=== PATIENT | male | born 1955 | race Caucasian/White ===

== ENCOUNTER 2017-10-21 17:03 | Emergency (ER) | payer MEDICARE, MEDICAID ==
[~2017-10-21] VITALS: Ht 170.2 cm; Wt 74.5 kg
[~2017-10-21 17:03] MED LIST: AMLO5TAB PO; ASPI-611 PO; CARV3.123 PO; FURO20TA4 PO; INSU100V36 SQ; LABE100T PO; LANTUS SUBCUT; LISI10TA4 PO; LORA0.5T PO; LORA2TAB PO; NITR1OIN TP; ONDA8TAB9 PO; PHO667C PO
[2017-10-21] MEDS ORDERED: HYDROcodone/acetaminophen 10/325mg tab PO ONE (17:30)
[2017-10-21 18:17] LABS: BASOPHILS % (AUTO) 0.3 % (0-1); EOSINOPHILS # (AUTO) 0.3 X10'3 (0-0.9); EOSINOPHILS % (AUTO) 4.9 % (0-6); HEMATOCRIT 38.3 % (42.0-52.0); HEMOGLOBIN 12.7 g/dl (14.0-17.9); LYMPHOCYTES # (AUTO) 1.3 X10'3 (1.1-4.8); LYMPHOCYTES % (AUTO) 23.5 % (21-51); MEAN CORPUSCULAR HEMOGLOBIN 32.5 PG (27.0-31.0); MEAN CORPUSCULAR HGB CONC 33.1 % (33.0-36.5); MEAN CORPUSCULAR VOLUME 98.1 FL (78-98); MEAN PLATELET VOLUME 8.7 FL (7.4-10.4); MONOCYTES # (AUTO) 1.1 X10'3 (0-0.9); MONOCYTES % (AUTO) 19.3 % (2-12); PLATELET COUNT 156 X10'3 (140-440); RED CELL DISTRIBUTION WIDTH 15.8 % (11.5-14.5); WHITE BLOOD COUNT 5.7 X10'3 (4.5-11.0)
[2017-10-21 18:27] LABS: INR 1.1 INR; PROTHROMBIN TIME 11.8 SECONDS (9.0-12.0)
[2017-10-21] MEDS ORDERED: HYDR-569 PO (18:29)
[2017-10-21] MEDS ORDERED: CEPH-571 PO (18:29)
[2017-10-21 18:42] LABS: ALANINE AMINOTRANSFERASE 47 U/L (12-78); ALBUMIN 3.6 G/DL (3.4-5.0); ALBUMIN/GLOBULIN RATIO 0.7 (1.1-1.5); ALKALINE PHOSPHATASE 80 IU/L (46-116); ANION GAP 11 (8-16); ASPARTATE AMINO TRANSFERASE 82 U/L (10-37); BILIRUBIN,TOTAL 0.8 MG/DL (0.1-1.0); BLOOD UREA NITROGEN 21 MG/DL (7-18); BUN/CREATININE RATIO 4.2 (5.4-32.0); CALCIUM 9.5 MG/DL (8.5-10.1); CHLORIDE 96 MMOL/L (99-107); CREATININE 5.02 MG/DL (0.60-1.10); GLUCOSE 121 MG/DL (70-104); POTASSIUM 3.6 MMOL/L (3.5-5.1); SODIUM 137 MMOL/L (135-145); TOTAL CARBON DIOXIDE 30.3 MMOL/L (24-32); TOTAL PROTEIN 8.5 G/DL (6.4-8.2); eGFR 12 ML/MIN
[2017-10-21 18:49] LABS: ANISOCYTOSIS 1+; PLATELET ESTIMATE NORMAL; TOTAL CELLS COUNTED 100
[2017-10-21 18:51] LABS: TARGET CELLS 1+; TEAR DROP CELLS FEW
[2017-10-21 18:58] VITALS: BP 173/81
== END 2017-10-21 19:09 | disposition home or self-care (01) ==
LOC: ER 17:03
DX: S81.801A Unspecified open wound, right lower leg, initial encounter (principal); M25.552 Pain in left hip; M25.512 Pain in left shoulder; I25.10 Atherosclerotic heart disease of native coronary artery without angina pectoris; E11.22 Type 2 diabetes mellitus with diabetic chronic kidney disease; I12.0 Hypertensive chronic kidney disease with stage 5 chronic kidney disease or end stage renal disease; N18.6 End stage renal disease; Z99.2 Dependence on renal dialysis; I25.2 Old myocardial infarction; G89.29 Other chronic pain; E78.00 Pure hypercholesterolemia, unspecified; Z98.62 Peripheral vascular angioplasty status; Z79.82 Long term (current) use of aspirin; Z79.4 Long term (current) use of insulin; Z79.899 Other long term (current) drug therapy; Z95.1 Presence of aortocoronary bypass graft; M15.9 Polyosteoarthritis, unspecified; W17.89XA Other fall from one level to another, initial encounter; Y93.89 Activity, other specified; Y92.89 Other specified places as the place of occurrence of the external cause; Y99.8 Other external cause status
CPT/HCPCS: 36415; 73030; 73502; 80053; 85025; 85610; 99285

== ENCOUNTER 2017-11-07 09:22 | Inpatient (IN) | payer MEDICARE, MEDICAID ==
[~2017-11-07] VITALS: Ht 170.2 cm; Wt 81.3 kg
[~2017-11-07 09:22] MED LIST changes: +CEPH-571 PO; +HYDR-569 PO
[2017-11-07] MEDS ORDERED: HYDROcodone/acetaminophen 10/325mg tab PO ONE (11:55)
[2017-11-07] MEDS ORDERED: labetalol 20mg/4ml (5mg/ml) syringe IV ONE (11:55)
[2017-11-07] MEDS ORDERED: HYDR-565 PO (11:55)
[2017-11-07] MEDS ORDERED: nitroGLYCERIN 0.4mg SUBLingual tab SL PRN (12:30)
[2017-11-07] MEDS ORDERED: nitroGLYCERIN 0.4mg SUBLingual tab SL ONE (12:30)
[2017-11-07] MEDS: nitroGLYCERIN 0.4mg SUBLingual tab SL PRN ×2 (12:35→12:50)
[2017-11-07] MEDS ORDERED: furosemide 20MG tablet PO ONE (12:55)
[2017-11-07] MEDS ORDERED: cloNIDine 0.1 mg tablet PO ONE (14:50)
[2017-11-07 14:53] LABS: BASOPHILS % (AUTO) 0.2 % (0-1); EOSINOPHILS # (AUTO) 0.1 X10'3 (0-0.9); EOSINOPHILS % (AUTO) 2.3 % (0-6); HEMATOCRIT 35.8 % (42.0-52.0); LYMPHOCYTES # (AUTO) 0.7 X10'3 (1.1-4.8); LYMPHOCYTES % (AUTO) 12.9 % (21-51); MEAN CORPUSCULAR HEMOGLOBIN 32.8 PG (27.0-31.0); MEAN CORPUSCULAR HGB CONC 33.6 % (33.0-36.5); MEAN CORPUSCULAR VOLUME 97.4 FL (78-98); MEAN PLATELET VOLUME 9.1 FL (7.4-10.4); MONOCYTES # (AUTO) 0.7 X10'3 (0-0.9); MONOCYTES % (AUTO) 11.8 % (2-12); NEUTROPHILS # (AUTO) 4.2 X10'3 (1.8-7.7); NEUTROPHILS % (AUTO) 72.8 % (42-75); PLATELET COUNT 134 X10'3 (140-440); RED BLOOD COUNT 3.68 X10'6 (4.70-6.10); WHITE BLOOD COUNT 5.8 X10'3 (4.5-11.0)
[2017-11-07 15:03] LABS: INR 1.2 INR; PARTIAL THROMBOPLASTIN TIME 32 SECONDS (22-32); PROTHROMBIN TIME 12.3 SECONDS (9.0-12.0)
[2017-11-07 15:10] LABS: ALANINE AMINOTRANSFERASE 14 U/L (12-78); ALBUMIN 3.5 G/DL (3.4-5.0); ALBUMIN/GLOBULIN RATIO 0.8 (1.1-1.5); ALKALINE PHOSPHATASE 84 IU/L (46-116); ANION GAP 10 (8-16); ASPARTATE AMINO TRANSFERASE 60 U/L (10-37); BLOOD UREA NITROGEN 29 MG/DL (7-18); BUN/CREATININE RATIO 5.1 (5.4-32.0); CALCIUM 8.6 MG/DL (8.5-10.1); CHLORIDE 95 MMOL/L (99-107); GLUCOSE 136 MG/DL (70-104); POTASSIUM 4.4 MMOL/L (3.5-5.1); SODIUM 132 MMOL/L (135-145); TOTAL CARBON DIOXIDE 26.7 MMOL/L (24-32); TOTAL PROTEIN 7.9 G/DL (6.4-8.2); eGFR 10 ML/MIN
[2017-11-07] MEDS ORDERED: HYDROcodone/acetaminophen 5mg/325mg tablet PO ONE (15:30)
[2017-11-07] MEDS ORDERED: heparin 1,000unit/ml 10ml vial 10 ML IV ONE (15:51)
[2017-11-07] MEDS ORDERED: albumin (human) 25% 100ml IV 100 ML IV PRN (15:55)
[2017-11-07] MEDS ORDERED: acetaminophen 325mg tablet PO PRN ×2 (15:55)
[2017-11-07] MEDS ORDERED: ipratropium/albuterol 3ml nebule NEB PRN (15:55)
[2017-11-07] MEDS ORDERED: HYDROcodone/acetaminophen 5mg/325mg tablet PO PRN ×2 (15:55→16:00)
[2017-11-07] MEDS ORDERED: ondansetron/PF 4mg/2ml inj IV PRN (15:55)
[2017-11-07] MEDS ORDERED: heparin 1,000 units/ml 10ml inj IV ONE (15:55)
[2017-11-07] MEDS ORDERED: epoetin 20,000 units/ml inj IV ONE (15:55)
[2017-11-07] MEDS ORDERED: bisacodyl 10mg suppository rectal RC PRN (15:55)
[2017-11-07] MEDS ORDERED: LORazepam 0.5 MG tablet PO PRN (16:00)
[2017-11-07] MEDS ORDERED: insulin Lispro (HumaLOG) vial - multi-dose SQ SCH (16:00)
[2017-11-07] MEDS ORDERED: glucagon, human recombinant 1mg kit SUBCUT PRN (16:00)
[2017-11-07] MEDS ORDERED: dextrose 50%-water 50ml dispensing syringe IV PRN ×2 (16:00)
[2017-11-07] MEDS ORDERED: dextrose ORAL solution 15 GM/59 ML bottle PO PRN ×2 (16:00)
[2017-11-07] MEDS ORDERED: non-formulary drug (Lorazepam 1 TAB) PO PRN (16:00)
[2017-11-07] MEDS ORDERED: non-formulary drug (Ondansetron (Zofran Odt) 8 MG) PO PRN (16:00)
[2017-11-07] MEDS ORDERED: MESSAGE TO PHARMACY PO ONE (16:00)
[2017-11-07] MEDS ORDERED: nitroGLYCERIN 1gm ointment UD TP PRN (16:00)
[2017-11-07] MEDS ORDERED: ondansetron 4mg rapidly disintigrating tab PO PRN ×2 (16:05)
[2017-11-07] MEDS ORDERED: ondansetron 4mg rapidly disintigrating tab PO SCH (16:05)
[2017-11-07] MEDS ORDERED: LORazepam 1 MG tablet PO PRN (16:05)
[2017-11-07] MEDS ORDERED: CARV-50 PO (17:03)
[2017-11-07] MEDS ORDERED: LABE300T PO (17:03)
[2017-11-07] MEDS ORDERED: HYDR-4070 PO (17:03)
[2017-11-07] MEDS ORDERED: LISI-600 PO (17:03)
[2017-11-07] MEDS: labetalol 5mg/ml 20ml inj. IV PRN ×3 (17:39→22:55)
[2017-11-07] MEDS: furosemide 40mg tablet PO SCH (18:18)
[2017-11-07] MEDS: carVEDilol 3.125mg tablet PO SCH (18:18)
[2017-11-07] MEDS: calcium acetate 667mg (PhosLO) capsule PO SCH (18:34)
[2017-11-07 19:00] VITALS: BP 207/106
[2017-11-07] MEDS ORDERED: heparin 1,000 units/ml 10ml inj HE ONE ×2 (19:05)
[2017-11-07 20:00] VITALS: BP 179/94
[2017-11-07] MEDS: heparin, porcine 5000 units/ml vial SQ SCH (20:14)
[2017-11-07] MEDS: docusate sod 100mg capsule PO SCH (20:14)
[2017-11-07 21:00] VITALS: BP 193/97
[2017-11-07] MEDS: insulin glargine (Lantus) pen - multi-dose SQ SCH ×2 (21:00)
[2017-11-07 22:00] VITALS: BP 194/94
[2017-11-07] MEDS: HYDROcodone/acetaminophen 10/325mg tab PO PRN (22:54)
[2017-11-07 23:00] VITALS: BP 175/94
[2017-11-08] VITALS (25 sets, daily range): BP systolic 119–214; BP diastolic 64–114
[2017-11-08] MEDS: HYDROcodone/acetaminophen 10/325mg tab PO PRN ×4 (05:06→21:31)
[2017-11-08 06:35] LABS: BASOPHILS % (AUTO) 0.1 % (0-1); EOSINOPHILS # (AUTO) 0.1 X10'3 (0-0.9); EOSINOPHILS % (AUTO) 2.6 % (0-6); HEMATOCRIT 36.1 % (42.0-52.0); HEMOGLOBIN 12.2 g/dl (14.0-17.9); LYMPHOCYTES # (AUTO) 0.7 X10'3 (1.1-4.8); MEAN CORPUSCULAR HEMOGLOBIN 33.1 PG (27.0-31.0); MEAN CORPUSCULAR HGB CONC 33.9 % (33.0-36.5); MEAN CORPUSCULAR VOLUME 97.8 FL (78-98); MONOCYTES # (AUTO) 0.6 X10'3 (0-0.9); MONOCYTES % (AUTO) 11.9 % (2-12); NEUTROPHILS # (AUTO) 3.2 X10'3 (1.8-7.7); NEUTROPHILS % (AUTO) 69.4 % (42-75); PLATELET COUNT 129 X10'3 (140-440); WHITE BLOOD COUNT 4.6 X10'3 (4.5-11.0)
[2017-11-08 07:01] LABS: ANION GAP 9 (8-16); BLOOD UREA NITROGEN 11 MG/DL (7-18); BUN/CREATININE RATIO 3.3 (5.4-32.0); CALCIUM 8.5 MG/DL (8.5-10.1); CHLORIDE 100 MMOL/L (99-107); GLUCOSE 119 MG/DL (70-104); MAGNESIUM 1.8 MG/DL (1.5-2.4); PHOSPHORUS 2.7 MG/DL (2.3-4.5); POTASSIUM 4.2 MMOL/L (3.5-5.1); SODIUM 137 MMOL/L (135-145); eGFR 19 ML/MIN
[2017-11-08] MEDS ORDERED: non-formulary drug (Aspirin (Aspir 81) 1 TABLET) PO SCH (08:00)
[2017-11-08] MEDS ORDERED: non-formulary drug (Amlodipine Besylate 1 TABLET) PO SCH (08:00)
[2017-11-08] MEDS: carVEDilol 3.125mg tablet PO SCH (08:07)
[2017-11-08] MEDS: amLODIPine 5mg tablet PO SCH (08:07)
[2017-11-08] MEDS: docusate sod 100mg capsule PO SCH ×2 (08:07→19:56)
[2017-11-08] MEDS: furosemide 40mg tablet PO SCH ×3 (08:07→21:25)
[2017-11-08] MEDS: calcium acetate 667mg (PhosLO) capsule PO SCH ×3 (08:07→17:56)
[2017-11-08] MEDS: aspirin 81mg tablet.DR PO SCH (08:07)
[2017-11-08] MEDS: pantoprazole 40mg Tablet.DR PO SCH (08:07)
[2017-11-08] MEDS: heparin, porcine 5000 units/ml vial SQ SCH ×2 (08:08→20:00)
[2017-11-08] MEDS: labetalol 5mg/ml 20ml inj. IV PRN (08:16)
[2017-11-08] MEDS ORDERED: hydrALAZINE 25 MG tablet PO ONE (08:40)
[2017-11-08] MEDS: labetalol 100mg tablet PO SCH ×3 (08:51→20:00)
[2017-11-08] MEDS: carVEDilol 12.5mg tablet PO SCH ×2 (10:00→19:56)
[2017-11-08] MEDS: lisinopril 20mg tablet PO SCH ×2 (10:42→19:57)
[2017-11-08] MEDS ORDERED: carVEDilol 3.125mg tablet PO ONE (11:25)
[2017-11-08] MEDS: hydrALAZINE 25 MG tablet PO SCH ×2 (12:47→21:26)
[2017-11-08] MEDS: insulin glargine (Lantus) pen - multi-dose SQ SCH ×2 (21:00)
[2017-11-09] VITALS (13 sets, daily range): BP systolic 113–160; BP diastolic 61–82
[2017-11-09 05:43] LABS: BASOPHILS % (AUTO) 0.4 % (0-1); EOSINOPHILS # (AUTO) 0.2 X10'3 (0-0.9); EOSINOPHILS % (AUTO) 3.8 % (0-6); HEMATOCRIT 33.2 % (42.0-52.0); HEMOGLOBIN 11.3 g/dl (14.0-17.9); LYMPHOCYTES # (AUTO) 0.9 X10'3 (1.1-4.8); LYMPHOCYTES % (AUTO) 20.8 % (21-51); MEAN CORPUSCULAR HEMOGLOBIN 33.1 PG (27.0-31.0); MEAN CORPUSCULAR HGB CONC 34.1 % (33.0-36.5); MEAN PLATELET VOLUME 9.6 FL (7.4-10.4); MONOCYTES # (AUTO) 0.7 X10'3 (0-0.9); NEUTROPHILS # (AUTO) 2.7 X10'3 (1.8-7.7); PLATELET COUNT 132 X10'3 (140-440); RED BLOOD COUNT 3.43 X10'6 (4.70-6.10); RED CELL DISTRIBUTION WIDTH 17.1 % (11.5-14.5); WHITE BLOOD COUNT 4.5 X10'3 (4.5-11.0)
[2017-11-09 06:22] LABS: ALBUMIN 2.6 G/DL (3.4-5.0); ANION GAP 8 (8-16); BLOOD UREA NITROGEN 17 MG/DL (7-18); BUN/CREATININE RATIO 3.8 (5.4-32.0); CALCIUM 8.2 MG/DL (8.5-10.1); CHLORIDE 99 MMOL/L (99-107); GLUCOSE 101 MG/DL (70-104); MAGNESIUM 1.7 MG/DL (1.5-2.4); PHOSPHORUS 3.2 MG/DL (2.3-4.5); POTASSIUM 4.3 MMOL/L (3.5-5.1); SODIUM 135 MMOL/L (135-145); TOTAL CARBON DIOXIDE 27.9 MMOL/L (24-32); eGFR 13 ML/MIN
[2017-11-09] MEDS: pantoprazole 40mg Tablet.DR PO SCH (06:58)
[2017-11-09] MEDS: HYDROcodone/acetaminophen 10/325mg tab PO PRN (06:58)
[2017-11-09] MEDS: docusate sod 100mg capsule PO SCH (07:26)
[2017-11-09] MEDS: carVEDilol 12.5mg tablet PO SCH (07:26)
[2017-11-09] MEDS: calcium acetate 667mg (PhosLO) capsule PO SCH ×2 (07:26→12:38)
[2017-11-09] MEDS: amLODIPine 5mg tablet PO SCH (07:27)
[2017-11-09] MEDS: lisinopril 20mg tablet PO SCH (07:27)
[2017-11-09] MEDS: aspirin 81mg tablet.DR PO SCH (07:27)
[2017-11-09] MEDS: hydrALAZINE 25 MG tablet PO SCH ×2 (07:27→12:37)
[2017-11-09] MEDS: furosemide 40mg tablet PO SCH ×2 (07:27→12:37)
[2017-11-09] MEDS: labetalol 100mg tablet PO SCH ×2 (07:30→07:34)
[2017-11-09] MEDS: heparin, porcine 5000 units/ml vial SQ SCH (07:31)
[2017-11-09] MEDS ORDERED: lactulose 20gm/30ml cup PO PRN (15:55)
== END 2017-11-09 13:50 | disposition home health service (06) | DRG 640 ==
LOC: ER 09:23 → ED HOLD 15:53 → EDBEDREQ 16:22 → CICU 2S 17:23
PROVIDERS: ADMIT Internal Medicine Critical Care Medicine; ATTEND Internal Medicine Critical Care Medicine
PROC: 5A1D70Z Performance of Urinary Filtration, Intermittent, Less than 6 Hours Per Day (ICD-10-PCS; principal; 2017-11-07)
DX: E87.70 Fluid overload, unspecified (principal); N18.6 End stage renal disease; E11.22 Type 2 diabetes mellitus with diabetic chronic kidney disease; I13.11 Hypertensive heart and chronic kidney disease without heart failure, with stage 5 chronic kidney disease, or end stage renal disease; I50.30 Unspecified diastolic (congestive) heart failure; I16.1 Hypertensive emergency; E78.00 Pure hypercholesterolemia, unspecified; G89.29 Other chronic pain; I25.10 Atherosclerotic heart disease of native coronary artery without angina pectoris; B19.20 Unspecified viral hepatitis C without hepatic coma; Z99.2 Dependence on renal dialysis; I25.2 Old myocardial infarction; Z79.4 Long term (current) use of insulin; Z79.82 Long term (current) use of aspirin; Z79.899 Other long term (current) drug therapy; Z80.9 Family history of malignant neoplasm, unspecified; Z83.3 Family history of diabetes mellitus; Z83.49 Family history of other endocrine, nutritional and metabolic diseases; Z82.49 Family history of ischemic heart disease and other diseases of the circulatory system
CPT/HCPCS: 36415; 80048; 80053; 82948; 83036; 83735; 84100; 84484; 85025; 85610; 85730; 87070; 93005; 94760; 99291; 99292; A6212; A6213; A6222; A6251; A6255; A6449; G0257; J0885; J1644; J1815; J3490; J7030

== ENCOUNTER 2017-11-28 09:51 | Emergency (ER) | payer MEDICARE, MEDICAID ==
[~2017-11-28] VITALS: Ht 167.6 cm; Wt 76.0 kg
[~2017-11-28 09:51] MED LIST changes: +CARV-50 PO; -CARV3.123 PO; -CEPH-571 PO; +HYDR-3965 PO; +HYDR-4070 PO; -HYDR-569 PO; -LABE100T PO; +LABE300T PO; +LISI-600 PO; -LISI10TA4 PO; +ONDA4TAB9 PO
[2017-11-28 12:04] LABS: BASOPHILS % (AUTO) 0.3 % (0-1); EOSINOPHILS # (AUTO) 0.1 X10'3 (0-0.9); EOSINOPHILS % (AUTO) 2.5 % (0-6); HEMATOCRIT 35.1 % (42.0-52.0); HEMOGLOBIN 12.4 g/dl (14.0-17.9); LYMPHOCYTES # (AUTO) 0.8 X10'3 (1.1-4.8); LYMPHOCYTES % (AUTO) 16.1 % (21-51); MEAN CORPUSCULAR HEMOGLOBIN 33.6 PG (27.0-31.0); MEAN CORPUSCULAR HGB CONC 35.2 % (33.0-36.5); MEAN CORPUSCULAR VOLUME 95.4 FL (78-98); MEAN PLATELET VOLUME 10.4 FL (7.4-10.4); MONOCYTES # (AUTO) 0.6 X10'3 (0-0.9); MONOCYTES % (AUTO) 13.6 % (2-12); NEUTROPHILS # (AUTO) 3.2 X10'3 (1.8-7.7); NEUTROPHILS % (AUTO) 67.5 % (42-75); PLATELET COUNT 129 X10'3 (140-440); RED BLOOD COUNT 3.68 X10'6 (4.70-6.10); RED CELL DISTRIBUTION WIDTH 16.2 % (11.5-14.5); WHITE BLOOD COUNT 4.8 X10'3 (4.5-11.0)
[2017-11-28 12:05] LABS: INR 1.2 INR; PROTHROMBIN TIME 12.4 SECONDS (9.0-12.0)
[2017-11-28 12:26] LABS: ALANINE AMINOTRANSFERASE 44 U/L (12-78); ALBUMIN 3.4 G/DL (3.4-5.0); ALBUMIN/GLOBULIN RATIO 0.8 (1.1-1.5); ALKALINE PHOSPHATASE 101 IU/L (46-116); ANION GAP 12 (8-16); ASPARTATE AMINO TRANSFERASE 76 U/L (10-37); BILIRUBIN,TOTAL 0.9 MG/DL (0.1-1.0); BLOOD UREA NITROGEN 35 MG/DL (7-18); BUN/CREATININE RATIO 6.6 (5.4-32.0); CALCIUM 9.6 MG/DL (8.5-10.1); CHLORIDE 95 MMOL/L (99-107); CREATININE 5.31 MG/DL (0.60-1.10); GLUCOSE 138 MG/DL (70-104); POTASSIUM 4.9 MMOL/L (3.5-5.1); SODIUM 133 MMOL/L (135-145); TOTAL CARBON DIOXIDE 26.4 MMOL/L (24-32); TOTAL PROTEIN 7.8 G/DL (6.4-8.2); eGFR 11 ML/MIN
[2017-11-28 12:35] LABS: LARGE PLATELETS FEW; PLATELET ESTIMATE NORMAL
[2017-11-28] MEDS ORDERED: HYDROcodone/acetaminophen 10/325mg tab PO ONE (13:15)
[2017-11-28] MEDS ORDERED: hydrALAZINE 20mg/ml inj. IV ONE (14:10)
[2017-11-28] MEDS ORDERED: HYDR-565 PO (14:30)
[2017-11-28] MEDS ORDERED: LIDOcaine/PRILOcaine 5gm cream TP ONE (14:35)
[2017-11-28] MEDS ORDERED: morphine 5 MG/ML injection IV ONE (14:45)
[2017-11-28] MEDS ORDERED: morphine 4 MG/ML inj SYRINge IV ONE (14:50)
[2017-11-28 15:07] VITALS: BP 178/100
== END 2017-11-28 15:08 | disposition home or self-care (01) ==
LOC: ER 09:52
DX: L03.116 Cellulitis of left lower limb (principal); L03.115 Cellulitis of right lower limb; I12.0 Hypertensive chronic kidney disease with stage 5 chronic kidney disease or end stage renal disease; E11.22 Type 2 diabetes mellitus with diabetic chronic kidney disease; N18.6 End stage renal disease; I25.10 Atherosclerotic heart disease of native coronary artery without angina pectoris; E78.00 Pure hypercholesterolemia, unspecified; I25.2 Old myocardial infarction; G89.29 Other chronic pain; Z99.2 Dependence on renal dialysis; Z95.1 Presence of aortocoronary bypass graft; Z98.62 Peripheral vascular angioplasty status; Z60.2 Problems related to living alone; Z79.82 Long term (current) use of aspirin; Z79.4 Long term (current) use of insulin; Z79.899 Other long term (current) drug therapy
CPT/HCPCS: 36415; 80053; 83880; 85025; 85610; 93970; 96374; 96375; 99291; J0360; J2270

== ENCOUNTER 2017-12-08 16:12 | Inpatient (IN) | payer MEDICARE, MEDICAID ==
[~2017-12-08] VITALS: Ht 170.2 cm; Wt 72.6 kg
[~2017-12-08 16:12] MED LIST changes: +HYDR-565 PO; +NAPR-56 PO
[2017-12-08] MEDS ORDERED: cloNIDine 0.1 mg tablet PO SCH (16:50)
[2017-12-08 16:59] VITALS: BP 218/109
[2017-12-08] MEDS ORDERED: ondansetron 4mg rapidly disintigrating tab PO PRN (17:15)
[2017-12-08] MEDS ORDERED: nitroGLYCERIN 1gm ointment UD TP PRN (17:15)
[2017-12-08] MEDS ORDERED: HYDROcodone/acetaminophen 5mg/325mg tablet PO PRN (17:15)
[2017-12-08] MEDS ORDERED: LORazepam 0.5 MG tablet PO PRN (17:15)
[2017-12-08] MEDS ORDERED: ondansetron/PF 4mg/2ml inj IV PRN (17:20)
[2017-12-08] MEDS ORDERED: diphenhydrAMINE 25mg capsule PO PRN (17:20)
[2017-12-08] MEDS ORDERED: acetaminophen 325mg tablet PO PRN (17:20)
[2017-12-08 18:18] LABS: INR 1.1 INR; PARTIAL THROMBOPLASTIN TIME 32 SECONDS (22-32); PROTHROMBIN TIME 11.2 SECONDS (9.0-12.0)
[2017-12-08 18:19] LABS: HEMATOCRIT 35.5 % (42.0-52.0); HEMOGLOBIN 12.1 g/dl (14.0-17.9); HEMOGLOBIN A1C 4.8 % (4.5-6.2); MEAN CORPUSCULAR HEMOGLOBIN 32.9 PG (27.0-31.0); MEAN CORPUSCULAR HGB CONC 34.1 % (33.0-36.5); MEAN CORPUSCULAR VOLUME 96.4 FL (78-98); MEAN PLATELET VOLUME 9.9 FL (7.4-10.4); PLATELET COUNT 113 X10'3 (140-440); RED BLOOD COUNT 3.68 X10'6 (4.70-6.10); RED CELL DISTRIBUTION WIDTH 15.9 % (11.5-14.5)
[2017-12-08 18:22] LABS: WHITE BLOOD COUNT 3.7 X10'3 (4.5-11.0)
[2017-12-08 18:30] LABS: ALANINE AMINOTRANSFERASE 48 U/L (12-78); ALBUMIN/GLOBULIN RATIO 0.6 (1.1-1.5); ALKALINE PHOSPHATASE 144 IU/L (46-116); ANION GAP 8 (8-16); ASPARTATE AMINO TRANSFERASE 82 U/L (10-37); BILIRUBIN,TOTAL 0.8 MG/DL (0.1-1.0); BLOOD UREA NITROGEN 32 MG/DL (7-18); CALCIUM 8.5 MG/DL (8.5-10.1); CHLORIDE 101 MMOL/L (99-107); CREATININE 3.54 MG/DL (0.60-1.10); GLUCOSE 189 MG/DL (70-104); PHOSPHORUS 4.8 MG/DL (2.3-4.5); POTASSIUM 4.3 MMOL/L (3.5-5.1); SODIUM 138 MMOL/L (135-145); TOTAL CARBON DIOXIDE 28.9 MMOL/L (24-32); TOTAL PROTEIN 7.7 G/DL (6.4-8.2); eGFR 18 ML/MIN
[2017-12-08 18:55] LABS: TOTAL CELLS COUNTED 100
[2017-12-08 18:57] LABS: ANISOCYTOSIS 1+; PLATELET ESTIMATE DECREASED; TARGET CELLS 1+
[2017-12-08 18:58] LABS: LARGE PLATELETS FEW
[2017-12-08 19:00] VITALS: BP 206/105
[2017-12-08] MEDS: carVEDilol 12.5mg tablet PO SCH (19:05)
[2017-12-08] MEDS: lisinopril 20mg tablet PO SCH (19:05)
[2017-12-08] MEDS: HYDROcodone/acetaminophen 10/325mg tab PO PRN (19:06)
[2017-12-08] MEDS: heparin, porcine 5000 units/ml vial SQ SCH (19:06)
[2017-12-08 21:00] VITALS: BP 191/110
[2017-12-08] MEDS: insulin glargine (Lantus) pen - multi-dose SQ SCH (21:00)
[2017-12-08] MEDS: furosemide 40mg tablet PO SCH (21:06)
[2017-12-08] MEDS: hydrALAZINE 25 MG tablet PO SCH (21:07)
[2017-12-08] MEDS: cloNIDine 0.1 mg tablet PO SCH (21:07)
[2017-12-08] MEDS: LORazepam 0.5 MG tablet PO PRN (21:07)
[2017-12-08 23:00] VITALS: BP 139/73
[2017-12-09] VITALS (7 sets, daily range): BP systolic 127–180; BP diastolic 68–101
[2017-12-09] MEDS: HYDROcodone/acetaminophen 10/325mg tab PO PRN ×4 (02:34→21:06)
[2017-12-09 05:54] LABS: BASOPHILS % (AUTO) 0 % (0-1); EOSINOPHILS # (AUTO) 0.1 X10'3 (0-0.9); EOSINOPHILS % (AUTO) 2.7 % (0-6); HEMATOCRIT 34.2 % (42.0-52.0); HEMOGLOBIN 11.6 g/dl (14.0-17.9); LYMPHOCYTES # (AUTO) 0.8 X10'3 (1.1-4.8); LYMPHOCYTES % (AUTO) 20.3 % (21-51); MEAN CORPUSCULAR HEMOGLOBIN 32.7 PG (27.0-31.0); MEAN CORPUSCULAR HGB CONC 33.9 % (33.0-36.5); MEAN CORPUSCULAR VOLUME 96.5 FL (78-98); MEAN PLATELET VOLUME 9.9 FL (7.4-10.4); MONOCYTES # (AUTO) 0.5 X10'3 (0-0.9); MONOCYTES % (AUTO) 13.3 % (2-12); NEUTROPHILS # (AUTO) 2.4 X10'3 (1.8-7.7); NEUTROPHILS % (AUTO) 63.7 % (42-75); PLATELET COUNT 101 X10'3 (140-440); RED BLOOD COUNT 3.54 X10'6 (4.70-6.10); RED CELL DISTRIBUTION WIDTH 16.3 % (11.5-14.5); WHITE BLOOD COUNT 3.7 X10'3 (4.5-11.0)
[2017-12-09 06:00] LABS: ALBUMIN 2.7 G/DL (3.4-5.0); ANION GAP 9 (8-16); BLOOD UREA NITROGEN 39 MG/DL (7-18); BUN/CREATININE RATIO 9.4 (5.4-32.0); CALCIUM 7.9 MG/DL (8.5-10.1); CHLORIDE 101 MMOL/L (99-107); CHOL/HDL RATIO 4.1 (0.00-4.99); CHOLESTEROL 172 MG/DL (0-200); CREATININE 4.15 MG/DL (0.60-1.10); GLUCOSE 143 MG/DL (70-104); HDL CHOLESTEROL 42 MG/DL (35-60); LDL CHOLESTEROL 106 MG/DL (50-100); MAGNESIUM 1.9 MG/DL (1.5-2.4); PHOSPHORUS 6.1 MG/DL (2.3-4.5); POTASSIUM 5.8 MMOL/L (3.5-5.1); SODIUM 137 MMOL/L (135-145); TOTAL CARBON DIOXIDE 26.7 MMOL/L (24-32); TRIGLYCERIDES 89 MG/DL (20-135); eGFR 15 ML/MIN
[2017-12-09] MEDS: aspirin 81mg tablet.DR PO SCH (07:59)
[2017-12-09] MEDS ORDERED: albumin (human) 25% 100ml IV 100 ML IV PRN (08:00)
[2017-12-09] MEDS ORDERED: amLODIPine 5mg tablet PO SCH (08:00)
[2017-12-09] MEDS: furosemide 40mg tablet PO SCH ×3 (08:00→21:07)
[2017-12-09] MEDS ORDERED: heparin 1,000 units/ml 10ml inj IV ONE (08:00)
[2017-12-09] MEDS ORDERED: heparin 1,000unit/ml 10ml vial 10 ML IV ONE (08:00)
[2017-12-09] MEDS: heparin, porcine 5000 units/ml vial SQ SCH ×2 (08:00→19:47)
[2017-12-09] MEDS: cloNIDine 0.1 mg tablet PO SCH ×3 (08:01→21:07)
[2017-12-09] MEDS: amLODIPine 5mg tablet PO SCH (08:02)
[2017-12-09] MEDS: carVEDilol 12.5mg tablet PO SCH ×2 (08:03→19:47)
[2017-12-09] MEDS: lisinopril 20mg tablet PO SCH ×2 (08:03→19:47)
[2017-12-09] MEDS: calcium acetate 667mg (PhosLO) capsule PO SCH ×3 (08:04→17:27)
[2017-12-09] MEDS: hydrALAZINE 25 MG tablet PO SCH ×3 (08:04→21:07)
[2017-12-09] MEDS ORDERED: heparin 1,000 units/ml 10ml inj HE ONE ×2 (11:10)
[2017-12-09] MEDS: LORazepam 0.5 MG tablet PO PRN ×2 (11:26→21:10)
[2017-12-09] MEDS: insulin glargine (Lantus) pen - multi-dose SQ SCH (21:00)
[2017-12-10 03:00] VITALS: BP 162/85
[2017-12-10] MEDS: HYDROcodone/acetaminophen 10/325mg tab PO PRN ×4 (03:09→20:49)
[2017-12-10 05:23] LABS: HEMATOCRIT 35.7 % (42.0-52.0); HEMOGLOBIN 12.2 g/dl (14.0-17.9); MEAN CORPUSCULAR HGB CONC 34.1 % (33.0-36.5); MEAN CORPUSCULAR VOLUME 96.7 FL (78-98); MEAN PLATELET VOLUME 10.4 FL (7.4-10.4); PLATELET COUNT 107 X10'3 (140-440); RED BLOOD COUNT 3.69 X10'6 (4.70-6.10); RED CELL DISTRIBUTION WIDTH 16.3 % (11.5-14.5); WHITE BLOOD COUNT 3.9 X10'3 (4.5-11.0)
[2017-12-10 05:40] LABS: ALBUMIN 2.7 G/DL (3.4-5.0); ANION GAP 8 (8-16); BLOOD UREA NITROGEN 28 MG/DL (7-18); BUN/CREATININE RATIO 9.3 (5.4-32.0); CALCIUM 7.6 MG/DL (8.5-10.1); CHLORIDE 98 MMOL/L (99-107); GLUCOSE 199 MG/DL (70-104); MAGNESIUM 1.9 MG/DL (1.5-2.4); PHOSPHORUS 4.8 MG/DL (2.3-4.5); POTASSIUM 4.9 MMOL/L (3.5-5.1); SODIUM 133 MMOL/L (135-145); TOTAL CARBON DIOXIDE 26.9 MMOL/L (24-32); eGFR 21 ML/MIN
[2017-12-10 06:00] VITALS: BP 162/88
[2017-12-10 06:02] LABS: LYMPHOCYTES % (MANUAL) 25 % (21-51); NEUTROPHILS % (MANUAL) 50 % (42-75); TOTAL CELLS COUNTED 100
[2017-12-10 06:03] LABS: EOSINOPHILS % (MANUAL) 8 % (0-6); MONOCYTES % (MANUAL) 17 % (2-12); PLATELET ESTIMATE DECREASED
[2017-12-10 06:04] LABS: ANISOCYTOSIS 1+
[2017-12-10] MEDS: calcium acetate 667mg (PhosLO) capsule PO SCH ×3 (07:16→17:48)
[2017-12-10] MEDS: cloNIDine 0.1 mg tablet PO SCH ×3 (07:17→20:48)
[2017-12-10] MEDS: heparin, porcine 5000 units/ml vial SQ SCH ×2 (07:17→20:49)
[2017-12-10] MEDS: hydrALAZINE 25 MG tablet PO SCH ×3 (07:17→20:48)
[2017-12-10] MEDS: lisinopril 20mg tablet PO SCH ×2 (07:17→20:48)
[2017-12-10] MEDS: furosemide 40mg tablet PO SCH ×3 (07:19→20:48)
[2017-12-10] MEDS: carVEDilol 12.5mg tablet PO SCH ×2 (07:19→20:48)
[2017-12-10] MEDS: amLODIPine 5mg tablet PO SCH (07:19)
[2017-12-10] MEDS: aspirin 81mg tablet.DR PO SCH (07:19)
[2017-12-10] MEDS ORDERED: heparin 1,000unit/ml 10ml vial 10 ML IV ONE (08:48)
[2017-12-10] MEDS ORDERED: albumin (human) 25% 100ml IV 100 ML IV PRN (08:50)
[2017-12-10] MEDS ORDERED: heparin 1,000 units/ml 10ml inj HE ONE ×2 (08:55)
[2017-12-10 11:00] VITALS: BP 124/64
[2017-12-10] MEDS: LORazepam 0.5 MG tablet PO PRN ×2 (14:16→20:49)
[2017-12-10] MEDS ORDERED: famotidine 20mg tablet PO ONE (14:55)
[2017-12-10] MEDS ORDERED: DOCUMENT DATE & TIME OF BETA-BLOCKER PO ONE (14:55)
[2017-12-10 15:00] VITALS: BP 159/89
[2017-12-10] MEDS ORDERED: ringers solution, lacted 1,000 ML IV ONE (18:54)
[2017-12-10 19:00] VITALS: BP 168/88
[2017-12-10] MEDS: insulin glargine (Lantus) pen - multi-dose SQ SCH (20:58)
[2017-12-10 23:00] VITALS: BP 153/79
[2017-12-11] VITALS (17 sets, daily range): BP systolic 121–172; BP diastolic 64–89
[2017-12-11] MEDS ORDERED: cefazolin/dext.iso 2gm/50ml 50 ML IV ONE (06:00)
[2017-12-11] MEDS ORDERED: ringers solution, lacted 1,000 ML IV SCH ×2 (06:00→13:22)
[2017-12-11] MEDS ORDERED: DOCUMENT DATE & TIME OF BETA-BLOCKER PO ONE (06:00)
[2017-12-11] MEDS ORDERED: famotidine 20mg tablet PO ONE (06:00)
[2017-12-11 06:12] LABS: HEMATOCRIT 35.8 % (42.0-52.0); HEMOGLOBIN 12.3 g/dl (14.0-17.9); MEAN CORPUSCULAR HEMOGLOBIN 33.2 PG (27.0-31.0); MEAN CORPUSCULAR HGB CONC 34.4 % (33.0-36.5); MEAN CORPUSCULAR VOLUME 96.5 FL (78-98); MEAN PLATELET VOLUME 10.1 FL (7.4-10.4); PLATELET COUNT 105 X10'3 (140-440); RED CELL DISTRIBUTION WIDTH 16.4 % (11.5-14.5); WHITE BLOOD COUNT 4.2 X10'3 (4.5-11.0)
[2017-12-11 06:15] LABS: INR 1.1 INR; PRE OP PARTIAL THROMB. TIME 35 SECONDS (22-35); PROTHROMBIN TIME 11.6 SECONDS (9.0-12.0)
[2017-12-11 06:27] LABS: ALANINE AMINOTRANSFERASE 54 U/L (12-78); ALBUMIN 2.8 G/DL (3.4-5.0); ALBUMIN/GLOBULIN RATIO 0.6 (1.1-1.5); ALKALINE PHOSPHATASE 119 IU/L (46-116); ANION GAP 7 (8-16); ASPARTATE AMINO TRANSFERASE 81 U/L (10-37); BILIRUBIN,TOTAL 0.6 MG/DL (0.1-1.0); BLOOD UREA NITROGEN 24 MG/DL (7-18); BUN/CREATININE RATIO 9.5 (5.4-32.0); CALCIUM 7.7 MG/DL (8.5-10.1); CHLORIDE 98 MMOL/L (99-107); CREATININE 2.53 MG/DL (0.60-1.10); GLUCOSE 154 MG/DL (70-104); MAGNESIUM 1.9 MG/DL (1.5-2.4); PHOSPHORUS 4.2 MG/DL (2.3-4.5); POTASSIUM 4.6 MMOL/L (3.5-5.1); SODIUM 133 MMOL/L (135-145); TOTAL CARBON DIOXIDE 27.8 MMOL/L (24-32); TOTAL PROTEIN 7.5 G/DL (6.4-8.2); eGFR 26 ML/MIN
[2017-12-11 07:18] LABS: NEUTROPHILS % (MANUAL) 57 % (42-75); TOTAL CELLS COUNTED 100
[2017-12-11 07:19] LABS: ANISOCYTOSIS 1+; BASOPHILS % (MANUAL) 1 % (0-1); EOSINOPHILS % (MANUAL) 6 % (0-6); LYMPHOCYTES % (MANUAL) 25 % (21-51); MONOCYTES % (MANUAL) 11 % (2-12); PLATELET ESTIMATE DECREASED
[2017-12-11] MEDS: calcium acetate 667mg (PhosLO) capsule PO SCH ×3 (08:00→17:25)
[2017-12-11] MEDS: heparin, porcine 5000 units/ml vial SQ SCH ×3 (08:00→20:00)
[2017-12-11] MEDS: LORazepam 0.5 MG tablet PO PRN ×2 (08:49→22:36)
[2017-12-11] MEDS: HYDROcodone/acetaminophen 10/325mg tab PO PRN ×2 (08:50→17:48)
[2017-12-11] MEDS: cloNIDine 0.1 mg tablet PO SCH ×3 (08:51→20:38)
[2017-12-11] MEDS: hydrALAZINE 25 MG tablet PO SCH ×3 (08:51→20:39)
[2017-12-11] MEDS: amLODIPine 5mg tablet PO SCH (08:52)
[2017-12-11] MEDS: aspirin 81mg tablet.DR PO SCH (08:53)
[2017-12-11] MEDS: furosemide 40mg tablet PO SCH ×3 (08:53→20:39)
[2017-12-11] MEDS: lisinopril 20mg tablet PO SCH ×2 (08:53→20:38)
[2017-12-11] MEDS: carVEDilol 12.5mg tablet PO SCH ×2 (08:53→20:38)
[2017-12-11] MEDS ORDERED: sevoflurane 250ml liquid IH ONE (12:56)
[2017-12-11] MEDS ORDERED: ondansetron/PF 4mg/2ml inj ONE (12:56)
[2017-12-11] MEDS ORDERED: glycopyrrolate 0.2mg/ml inj ONE (12:56)
[2017-12-11] MEDS ORDERED: etomidate 2mg/ml inj. ONE (12:56)
[2017-12-11] MEDS ORDERED: neostigmine methylsulfate 1 MG/ML 10ml vial ONE (12:56)
[2017-12-11] MEDS ORDERED: morphine 4 MG/ML inj SYRINge IV PRN ×3 (13:25→18:10)
[2017-12-11] MEDS ORDERED: HYDROmorphone inj. 0.5 MG/0.5 ML DISP.SYRIN IV PRN ×2 (13:25)
[2017-12-11] MEDS ORDERED: hydrALAZINE 20mg/ml inj. IV PRN (13:25)
[2017-12-11] MEDS ORDERED: ondansetron/PF 4mg/2ml inj IV PRN (13:25)
[2017-12-11] MEDS ORDERED: enalaprilat dihydrate 2.5mg/2ml vial IV PRN (13:25)
[2017-12-11] MEDS ORDERED: heparin sodium, porcine/PF 100unit/ml 5ML syringe ONE (14:05)
[2017-12-11] MEDS ORDERED: BUPIVAcaine/PF 2.5 mg/ml (0.25%) 30ml vial ONE (14:06)
[2017-12-11] MEDS ORDERED: ceFAZolin 1000mg inj ONE (14:06)
[2017-12-11] MEDS ORDERED: mupirocin 2% ointment 22GM ONE (14:06)
[2017-12-11] MEDS ORDERED: epiNEPHrine 1 mg/ml inj ONE (14:06)
[2017-12-11] MEDS: morphine 4 MG/ML inj SYRINge IV PRN ×2 (18:25→22:32)
[2017-12-11] MEDS: insulin glargine (Lantus) pen - multi-dose SQ SCH (20:44)
[2017-12-12] VITALS (7 sets, daily range): BP systolic 103–145; BP diastolic 55–81
[2017-12-12] MEDS: morphine 4 MG/ML inj SYRINge IV PRN ×4 (04:02→19:40)
[2017-12-12] MEDS: aspirin 81mg tablet.DR PO SCH (06:51)
[2017-12-12] MEDS: HYDROcodone/acetaminophen 10/325mg tab PO PRN ×2 (06:51→16:06)
[2017-12-12] MEDS: LORazepam 0.5 MG tablet PO PRN (06:52)
[2017-12-12] MEDS: furosemide 40mg tablet PO SCH ×3 (06:52→21:04)
[2017-12-12] MEDS: calcium acetate 667mg (PhosLO) capsule PO SCH ×3 (06:52→17:52)
[2017-12-12 06:58] LABS: HEMATOCRIT 37.9 % (42.0-52.0); HEMOGLOBIN 12.9 g/dl (14.0-17.9); MEAN CORPUSCULAR HEMOGLOBIN 33.2 PG (27.0-31.0); MEAN CORPUSCULAR VOLUME 97.8 FL (78-98); MEAN PLATELET VOLUME 10.3 FL (7.4-10.4); PLATELET COUNT 108 X10'3 (140-440); RED BLOOD COUNT 3.87 X10'6 (4.70-6.10); RED CELL DISTRIBUTION WIDTH 16.4 % (11.5-14.5)
[2017-12-12 07:26] LABS: ALBUMIN 2.8 G/DL (3.4-5.0); ANION GAP 8 (8-16); BLOOD UREA NITROGEN 39 MG/DL (7-18); BUN/CREATININE RATIO 8.8 (5.4-32.0); CALCIUM 8.1 MG/DL (8.5-10.1); CHLORIDE 95 MMOL/L (99-107); CREATININE 4.44 MG/DL (0.60-1.10); GLUCOSE 130 MG/DL (70-104); PHOSPHORUS 7.1 MG/DL (2.3-4.5); POTASSIUM 5.9 MMOL/L (3.5-5.1); SODIUM 130 MMOL/L (135-145); TOTAL CARBON DIOXIDE 26.7 MMOL/L (24-32); eGFR 14 ML/MIN
[2017-12-12] MEDS ORDERED: heparin 1,000unit/ml 10ml vial 10 ML IV ONE (08:00)
[2017-12-12] MEDS: hydrALAZINE 25 MG tablet PO SCH ×3 (08:00→21:05)
[2017-12-12] MEDS: cloNIDine 0.1 mg tablet PO SCH ×3 (08:00→21:04)
[2017-12-12] MEDS: lisinopril 20mg tablet PO SCH ×2 (08:00→19:38)
[2017-12-12] MEDS: carVEDilol 12.5mg tablet PO SCH ×2 (08:00→19:38)
[2017-12-12] MEDS: heparin, porcine 5000 units/ml vial SQ SCH ×2 (08:00→19:44)
[2017-12-12] MEDS: amLODIPine 5mg tablet PO SCH (08:00)
[2017-12-12] MEDS ORDERED: heparin 1,000 units/ml 10ml inj HE ONE ×2 (08:00)
[2017-12-12] MEDS ORDERED: normal saline 1000ml 250 ML IV PRN (08:00)
[2017-12-12 08:07] LABS: ANISOCYTOSIS 1+; PLATELET ESTIMATE DECREASED; TOTAL CELLS COUNTED 100
[2017-12-12 08:08] LABS: POIKILOCYTOSIS FEW; TARGET CELLS FEW
[2017-12-12] MEDS: insulin glargine (Lantus) pen - multi-dose SQ SCH (21:00)
[2017-12-13] VITALS: BP 107/64
[2017-12-13] MEDS: HYDROcodone/acetaminophen 10/325mg tab PO PRN ×2 (00:29→07:35)
[2017-12-13] MEDS: morphine 4 MG/ML inj SYRINge IV PRN ×3 (01:50→11:01)
[2017-12-13] MEDS: LORazepam 0.5 MG tablet PO PRN (05:31)
[2017-12-13 06:13] LABS: BASOPHILS % (AUTO) 0.4 % (0-1); EOSINOPHILS # (AUTO) 0.1 X10'3 (0-0.9); EOSINOPHILS % (AUTO) 1.6 % (0-6); HEMATOCRIT 36.1 % (42.0-52.0); HEMOGLOBIN 12.6 g/dl (14.0-17.9); LYMPHOCYTES # (AUTO) 1.1 X10'3 (1.1-4.8); LYMPHOCYTES % (AUTO) 26.8 % (21-51); MEAN CORPUSCULAR HEMOGLOBIN 33.4 PG (27.0-31.0); MEAN CORPUSCULAR HGB CONC 34.8 % (33.0-36.5); MEAN PLATELET VOLUME 9.8 FL (7.4-10.4); MONOCYTES # (AUTO) 0.6 X10'3 (0-0.9); MONOCYTES % (AUTO) 15.1 % (2-12); NEUTROPHILS # (AUTO) 2.3 X10'3 (1.8-7.7); NEUTROPHILS % (AUTO) 56.1 % (42-75); PLATELET COUNT 101 X10'3 (140-440); RED BLOOD COUNT 3.76 X10'6 (4.70-6.10); RED CELL DISTRIBUTION WIDTH 16.2 % (11.5-14.5); WHITE BLOOD COUNT 4.1 X10'3 (4.5-11.0)
[2017-12-13 06:14] LABS: ALBUMIN 2.4 G/DL (3.4-5.0); ANION GAP 7 (8-16); BLOOD UREA NITROGEN 38 MG/DL (7-18); BUN/CREATININE RATIO 10.5 (5.4-32.0); CALCIUM 7.8 MG/DL (8.5-10.1); CHLORIDE 99 MMOL/L (99-107); CREATININE 3.63 MG/DL (0.60-1.10); GLUCOSE 138 MG/DL (70-104); MAGNESIUM 1.9 MG/DL (1.5-2.4); PHOSPHORUS 5.1 MG/DL (2.3-4.5); POTASSIUM 4.6 MMOL/L (3.5-5.1); SODIUM 134 MMOL/L (135-145); TOTAL CARBON DIOXIDE 27.6 MMOL/L (24-32); eGFR 17 ML/MIN
[2017-12-13 07:21] VITALS: BP 126/68
[2017-12-13] MEDS: calcium acetate 667mg (PhosLO) capsule PO SCH (07:33)
[2017-12-13] MEDS: lisinopril 20mg tablet PO SCH (07:33)
[2017-12-13] MEDS: hydrALAZINE 25 MG tablet PO SCH (07:33)
[2017-12-13] MEDS: cloNIDine 0.1 mg tablet PO SCH (07:33)
[2017-12-13] MEDS: aspirin 81mg tablet.DR PO SCH (07:33)
[2017-12-13] MEDS: amLODIPine 5mg tablet PO SCH (07:33)
[2017-12-13] MEDS: carVEDilol 12.5mg tablet PO SCH (07:33)
[2017-12-13] MEDS: heparin, porcine 5000 units/ml vial SQ SCH (07:34)
[2017-12-13] MEDS: furosemide 40mg tablet PO SCH (07:34)
[2017-12-13 11:31] VITALS: BP 107/60
== END 2017-12-13 11:35 | DRG 981 ==
LOC: PCU 3S 16:12 → MED 3N 12-12 21:30
PROVIDERS: ADMIT Internal Medicine Critical Care Medicine; ATTEND Internal Medicine Critical Care Medicine
PROC: 5A1D70Z Performance of Urinary Filtration, Intermittent, Less than 6 Hours Per Day (ICD-10-PCS; 2017-12-09)
PROC: 5A1D70Z Performance of Urinary Filtration, Intermittent, Less than 6 Hours Per Day (ICD-10-PCS; 2017-12-10)
PROC: 0W9G3ZZ Drainage of Peritoneal Cavity, Percutaneous Approach (ICD-10-PCS; 2017-12-11)
PROC: 0WHG43Z Insertion of Infusion Device into Peritoneal Cavity, Percutaneous Endoscopic Approach (ICD-10-PCS; principal; 2017-12-11 12:56)
PROC: 5A1D70Z Performance of Urinary Filtration, Intermittent, Less than 6 Hours Per Day (ICD-10-PCS; 2017-12-12)
DX: I13.2 Hypertensive heart and chronic kidney disease with heart failure and with stage 5 chronic kidney disease, or end stage renal disease (principal); N18.6 End stage renal disease; E11.22 Type 2 diabetes mellitus with diabetic chronic kidney disease; I42.9 Cardiomyopathy, unspecified; E87.70 Fluid overload, unspecified; B17.10 Acute hepatitis C without hepatic coma; R18.8 Other ascites; I50.30 Unspecified diastolic (congestive) heart failure; R62.7 Adult failure to thrive; Z99.2 Dependence on renal dialysis; Z79.82 Long term (current) use of aspirin; Z79.4 Long term (current) use of insulin; Z79.899 Other long term (current) drug therapy; Z87.891 Personal history of nicotine dependence; Z82.49 Family history of ischemic heart disease and other diseases of the circulatory system; Z83.3 Family history of diabetes mellitus; Z80.9 Family history of malignant neoplasm, unspecified
CPT/HCPCS: 36415; 71045; 80048; 80053; 80061; 82948; 83036; 83735; 83880; 84100; 85025; 85610; 85730; 87070; 93005; 93306; 97110; 97116; 97162; A4649; A6196; A6212; A6213; A6257; A6449; A7000; C1750; G0257; J0171; J0690; J1642; J1644; J1815; J2270; J2405; J2710; J3490; J7030; J7120

== ENCOUNTER 2017-12-11 08:00 | Day surgery (SDC) | payer MEDICARE, MEDICAID ==
[~2017-12-11] VITALS: Ht 170.2 cm; Wt 90.7 kg
[~2017-12-11 08:00] MED LIST changes: -AMLO5TAB PO; +DOCUMENT DATE & TIME OF BETA-BLOCKER PO ONE; -LABE300T PO; -LANTUS SUBCUT; -NAPR-56 PO; -ONDA4TAB9 PO; +cefazolin/dext.iso 2gm/50ml 50 ML IV ONE; +famotidine 20mg tablet PO ONE; +ringers solution, lacted 1,000 ML IV SCH
[2017-12-11] MEDS ORDERED: ceFAZolin 1000mg inj ONE (11:28)
[2017-12-11] MEDS ORDERED: epiNEPHrine 1 mg/ml inj ONE (11:28)
[2017-12-11] MEDS ORDERED: heparin sodium, porcine/PF 100unit/ml 5ML syringe ONE ×2 (11:28→11:31)
[2017-12-11] MEDS ORDERED: mupirocin 2% ointment 22GM ONE (11:29)
[2017-12-11] MEDS ORDERED: BUPIVAcaine/PF 2.5 mg/ml (0.25%) 30ml vial ONE (11:29)
[2017-12-11] MEDS ORDERED: fentaNYL/PF 50MCG/1 ML 2ML syringe ONE (13:00)
[2017-12-11] MEDS ORDERED: midazolam 2 mg/2 ml injection ONE (13:00)
[2017-12-11] MEDS ORDERED: rocuronium 10mg/ml inj IV ONE (13:01)
[2017-12-11] MEDS ORDERED: etomidate 2mg/ml inj. ONE (13:01)
[2017-12-11] MEDS ORDERED: hydrALAZINE 20mg/ml inj. IV ONE (13:12)
[2017-12-11] MEDS ORDERED: ondansetron/PF 4mg/2ml inj ONE (13:12)
[2017-12-11] MEDS ORDERED: neostigmine methylsulfate 1 MG/ML 10ml vial ONE (13:36)
[2017-12-11] MEDS ORDERED: glycopyrrolate 0.2mg/ml inj ONE (13:36)
== END 2017-12-11 13:25 | disposition home or self-care (01) ==
LOC: PRE-OP 08:00
PROVIDERS: ATTEND Surgery
DX: I13.2 Hypertensive heart and chronic kidney disease with heart failure and with stage 5 chronic kidney disease, or end stage renal disease (principal); N18.6 End stage renal disease; E11.22 Type 2 diabetes mellitus with diabetic chronic kidney disease; I50.9 Heart failure, unspecified; B19.20 Unspecified viral hepatitis C without hepatic coma; F10.21 Alcohol dependence, in remission; Z53.8 Procedure and treatment not carried out for other reasons; Z99.2 Dependence on renal dialysis; Z79.82 Long term (current) use of aspirin; Z79.4 Long term (current) use of insulin; Z95.1 Presence of aortocoronary bypass graft
CPT/HCPCS: A6212; A6257; J0171; J0360; J0690; J1642; J2250; J2405; J2710; J3010; J3490; J7030; J7120

== ENCOUNTER 2017-12-17 03:53 | Inpatient (IN) | payer MEDICARE, MEDICAID ==
[2017-12-17] VITALS (7 sets, daily range): BP systolic 156–204; BP diastolic 82–99
[~2017-12-17] VITALS: Ht 170.2 cm; Wt 62.5 kg
[~2017-12-17 03:53] MED LIST changes: -DOCUMENT DATE & TIME OF BETA-BLOCKER PO ONE; -cefazolin/dext.iso 2gm/50ml 50 ML IV ONE; -famotidine 20mg tablet PO ONE; -ringers solution, lacted 1,000 ML IV SCH
[2017-12-17 04:40] LABS: BASOPHILS % (AUTO) 0.5 % (0-1); EOSINOPHILS # (AUTO) 0.2 X10'3 (0-0.9); HEMOGLOBIN 12.6 g/dl (14.0-17.9); LYMPHOCYTES # (AUTO) 0.7 X10'3 (1.1-4.8); LYMPHOCYTES % (AUTO) 17.9 % (21-51); MEAN CORPUSCULAR HGB CONC 34.1 % (33.0-36.5); MEAN CORPUSCULAR VOLUME 96.7 FL (78-98); MEAN PLATELET VOLUME 9.7 FL (7.4-10.4); MONOCYTES # (AUTO) 0.5 X10'3 (0-0.9); NEUTROPHILS # (AUTO) 2.7 X10'3 (1.8-7.7); NEUTROPHILS % (AUTO) 64.6 % (42-75); PLATELET COUNT 101 X10'3 (140-440); RED BLOOD COUNT 3.82 X10'6 (4.70-6.10); RED CELL DISTRIBUTION WIDTH 15.7 % (11.5-14.5); WHITE BLOOD COUNT 4.2 X10'3 (4.5-11.0)
[2017-12-17 04:58] LABS: ALANINE AMINOTRANSFERASE 11 U/L (12-78); ALBUMIN 2.6 G/DL (3.4-5.0); ALBUMIN/GLOBULIN RATIO 0.6 (1.1-1.5); ALKALINE PHOSPHATASE 112 IU/L (46-116); ANION GAP 12 (8-16); ASPARTATE AMINO TRANSFERASE 63 U/L (10-37); BILIRUBIN,TOTAL 0.8 MG/DL (0.1-1.0); BLOOD UREA NITROGEN 52 MG/DL (7-18); BUN/CREATININE RATIO 10.4 (5.4-32.0); CALCIUM 8.9 MG/DL (8.5-10.1); CHLORIDE 97 MMOL/L (99-107); GLUCOSE 152 MG/DL (70-104); LIPASE 149 U/L (73-393); MAGNESIUM 2.2 MG/DL (1.5-2.4); PHOSPHORUS 4.2 MG/DL (2.3-4.5); POTASSIUM 5.1 MMOL/L (3.5-5.1); SODIUM 136 MMOL/L (135-145); TOTAL CARBON DIOXIDE 27.3 MMOL/L (24-32); TOTAL PROTEIN 7.2 G/DL (6.4-8.2); eGFR 12 ML/MIN
[2017-12-17] MEDS ORDERED: morphine 2 MG/ML inj. syringe IV PRN ×2 (05:30)
[2017-12-17] MEDS ORDERED: ondansetron/PF 4mg/2ml inj IV PRN (05:30)
[2017-12-17] MEDS ORDERED: morphine 4 MG/ML inj SYRINge IV PRN ×2 (06:15)
[2017-12-17 08:43] LABS: BFAPPEAR CLOUDY
[2017-12-17 08:45] LABS: BF WBC COUNT 290 /CU MM (0-1000); BFCOLOR PINK; BFVOLUME 27 ML
[2017-12-17 08:47] LABS: BF MESOTHELIAL CELLS FEW; BF RBC COUNT 7050 /CU MM; EOSINOPHILS,BODY FLUID 25 %; LYMPHOCYTES,BODY FLUID 10 %; MONOCYTES,BODY FLUID 4 %; NEUTROPHILS,BODY FLUID 61 %
[2017-12-17] MEDS ORDERED: VITC500T PO (09:15)
[2017-12-17] MEDS ORDERED: CLON-529 PO (09:24)
[2017-12-17] MEDS ORDERED: DULR (09:25)
[2017-12-17] MEDS ORDERED: NA P133E4 RC (09:27)
[2017-12-17] MEDS ORDERED: INSU100V9 SQ (09:29)
[2017-12-17] MEDS: morphine 4 MG/ML inj SYRINge IV PRN ×6 (09:34→23:39)
[2017-12-17] MEDS ORDERED: HYDR-565 PO (09:35)
[2017-12-17] MEDS: heparin, porcine 5000 units/ml vial SQ SCH ×2 (09:53→23:38)
[2017-12-17] MEDS ORDERED: morphine 10mg/ml inj. ONE (13:33)
[2017-12-17] MEDS ORDERED: non-formulary drug (Ondansetron (Zofran Odt) 8 MG) PO PRN (15:40)
[2017-12-17] MEDS ORDERED: HYDROcodone/acetaminophen 10/325mg tab PO PRN ×2 (15:40→16:40)
[2017-12-17] MEDS ORDERED: LORazepam 0.5 MG tablet PO PRN (15:55)
[2017-12-17] MEDS ORDERED: labetalol 20mg/4ml (5mg/ml) syringe IV PRN (16:40)
[2017-12-17] MEDS ORDERED: glucagon, human recombinant 1mg kit SUBCUT PRN (16:40)
[2017-12-17] MEDS ORDERED: dextrose 50%-water 50ml dispensing syringe IV PRN ×2 (16:40)
[2017-12-17] MEDS ORDERED: insulin Lispro (HumaLOG) vial - multi-dose SQ SCH (16:40)
[2017-12-17] MEDS ORDERED: MESSAGE TO PHARMACY PO ONE (16:40)
[2017-12-17] MEDS ORDERED: dextrose ORAL solution 15 GM/59 ML bottle PO PRN ×2 (16:40)
[2017-12-17] MEDS: calcium acetate 667mg (PhosLO) capsule PO SCH ×2 (17:06→23:34)
[2017-12-17] MEDS: HYDROcodone/acetaminophen 10/325mg tab PO PRN ×2 (17:07→22:13)
[2017-12-17] MEDS ORDERED: heparin 1,000unit/ml 10ml vial 10 ML IV ONE (17:56)
[2017-12-17] MEDS ORDERED: albumin (human) 25% 100ml IV 100 ML IV PRN (18:00)
[2017-12-17] MEDS ORDERED: heparin 1,000 units/ml 10ml inj HE ONE ×2 (18:00)
[2017-12-17] MEDS: LORazepam 0.5 MG tablet PO PRN (19:14)
[2017-12-17] MEDS ORDERED: insulin glargine (Lantus) pen - multi-dose SQ SCH (21:00)
[2017-12-17] MEDS: insulin glargine (Lantus) pen - multi-dose SQ SCH (21:00)
[2017-12-17] MEDS: hydrALAZINE 25 MG tablet PO SCH (23:34)
[2017-12-17] MEDS: lisinopril 20mg tablet PO SCH (23:34)
[2017-12-17] MEDS: furosemide 20MG tablet PO SCH (23:34)
[2017-12-17] MEDS: carVEDilol 12.5mg tablet PO SCH (23:34)
[2017-12-17] MEDS: cloNIDine 0.1 mg tablet PO SCH (23:35)
[2017-12-18] VITALS (10 sets, daily range): BP systolic 126–205; BP diastolic 61–95
[2017-12-18] MEDS: morphine 4 MG/ML inj SYRINge IV PRN ×7 (03:08→21:40)
[2017-12-18] MEDS: LORazepam 0.5 MG tablet PO PRN ×2 (03:23→19:27)
[2017-12-18 05:24] LABS: BASOPHILS % (AUTO) 0.1 % (0-1); EOSINOPHILS # (AUTO) 0.1 X10'3 (0-0.9); EOSINOPHILS % (AUTO) 1.4 % (0-6); HEMATOCRIT 39.5 % (42.0-52.0); HEMOGLOBIN 13.6 g/dl (14.0-17.9); LYMPHOCYTES % (AUTO) 12.5 % (21-51); MEAN CORPUSCULAR HEMOGLOBIN 32.8 PG (27.0-31.0); MEAN CORPUSCULAR HGB CONC 34.4 % (33.0-36.5); MEAN CORPUSCULAR VOLUME 95.4 FL (78-98); MEAN PLATELET VOLUME 9.1 FL (7.4-10.4); MONOCYTES # (AUTO) 0.8 X10'3 (0-0.9); MONOCYTES % (AUTO) 10.8 % (2-12); NEUTROPHILS # (AUTO) 5.8 X10'3 (1.8-7.7); NEUTROPHILS % (AUTO) 75.2 % (42-75); PLATELET COUNT 143 X10'3 (140-440); RED BLOOD COUNT 4.14 X10'6 (4.70-6.10); RED CELL DISTRIBUTION WIDTH 15.5 % (11.5-14.5); WHITE BLOOD COUNT 7.7 X10'3 (4.5-11.0)
[2017-12-18 05:43] LABS: INR 1.1 INR; PARTIAL THROMBOPLASTIN TIME 36 SECONDS (22-32); PROTHROMBIN TIME 11.2 SECONDS (9.0-12.0)
[2017-12-18 05:50] LABS: ALANINE AMINOTRANSFERASE 23 U/L (12-78); ALBUMIN 2.8 G/DL (3.4-5.0); ALBUMIN/GLOBULIN RATIO 0.6 (1.1-1.5); ALKALINE PHOSPHATASE 110 IU/L (46-116); ANION GAP 10 (8-16); ASPARTATE AMINO TRANSFERASE 77 U/L (10-37); BILIRUBIN,TOTAL 0.9 MG/DL (0.1-1.0); BLOOD UREA NITROGEN 28 MG/DL (7-18); BUN/CREATININE RATIO 7.9 (5.4-32.0); CALCIUM 8.8 MG/DL (8.5-10.1); CHLORIDE 98 MMOL/L (99-107); CREATININE 3.53 MG/DL (0.60-1.10); GLUCOSE 123 MG/DL (70-104); MAGNESIUM 2.1 MG/DL (1.5-2.4); POTASSIUM 4.4 MMOL/L (3.5-5.1); SODIUM 135 MMOL/L (135-145); TOTAL CARBON DIOXIDE 27.5 MMOL/L (24-32); TOTAL PROTEIN 7.8 G/DL (6.4-8.2); eGFR 18 ML/MIN
[2017-12-18] MEDS: calcium acetate 667mg (PhosLO) capsule PO SCH ×2 (06:53→17:24)
[2017-12-18] MEDS: carVEDilol 12.5mg tablet PO SCH ×2 (06:54→19:15)
[2017-12-18] MEDS: lisinopril 20mg tablet PO SCH ×2 (06:54→19:14)
[2017-12-18] MEDS: cloNIDine 0.1 mg tablet PO SCH ×3 (06:54→21:37)
[2017-12-18] MEDS: furosemide 20MG tablet PO SCH ×3 (06:54→21:36)
[2017-12-18] MEDS: hydrALAZINE 25 MG tablet PO SCH ×3 (06:54→21:37)
[2017-12-18] MEDS: heparin, porcine 5000 units/ml vial SQ SCH ×2 (06:56→19:15)
[2017-12-18] MEDS: labetalol 5mg/ml 20ml inj. IV PRN ×2 (10:11→17:24)
[2017-12-18] MEDS: aspirin 81mg tablet.DR PO SCH (11:08)
[2017-12-18] MEDS: ascorbic acid 500mg tablet PO SCH (11:08)
[2017-12-18] MEDS ORDERED: labetalol 20mg/4ml (5mg/ml) syringe IV ONE (12:00)
[2017-12-18] MEDS: minoxidil 2.5mg tablet PO SCH ×2 (13:05→19:14)
[2017-12-18] MEDS: insulin glargine (Lantus) pen - multi-dose SQ SCH (21:00)
[2017-12-19] MEDS: calcium acetate 667mg (PhosLO) capsule PO SCH ×3 (01:23→16:00)
[2017-12-19] MEDS: morphine 4 MG/ML inj SYRINge IV PRN ×4 (01:23→19:09)
[2017-12-19 03:00] VITALS: BP 98/50
[2017-12-19 05:30] VITALS: BP 100/51
[2017-12-19 06:33] LABS: BASOPHILS % (AUTO) 0.1 % (0-1); EOSINOPHILS # (AUTO) 0.1 X10'3 (0-0.9); EOSINOPHILS % (AUTO) 1.8 % (0-6); HEMATOCRIT 34.7 % (42.0-52.0); HEMOGLOBIN 11.9 g/dl (14.0-17.9); LYMPHOCYTES # (AUTO) 1.5 X10'3 (1.1-4.8); MEAN CORPUSCULAR HEMOGLOBIN 33.3 PG (27.0-31.0); MEAN CORPUSCULAR HGB CONC 34.4 % (33.0-36.5); MEAN CORPUSCULAR VOLUME 96.7 FL (78-98); MEAN PLATELET VOLUME 9.6 FL (7.4-10.4); MONOCYTES # (AUTO) 0.9 X10'3 (0-0.9); MONOCYTES % (AUTO) 14.5 % (2-12); NEUTROPHILS # (AUTO) 3.8 X10'3 (1.8-7.7); NEUTROPHILS % (AUTO) 60.6 % (42-75); PLATELET COUNT 131 X10'3 (140-440); RED BLOOD COUNT 3.59 X10'6 (4.70-6.10); RED CELL DISTRIBUTION WIDTH 15.8 % (11.5-14.5); WHITE BLOOD COUNT 6.3 X10'3 (4.5-11.0)
[2017-12-19 06:55] LABS: INR 1.1 INR; PARTIAL THROMBOPLASTIN TIME 36 SECONDS (22-32); PROTHROMBIN TIME 11.4 SECONDS (9.0-12.0)
[2017-12-19 06:57] LABS: ALANINE AMINOTRANSFERASE 22 U/L (12-78); ALBUMIN 2.4 G/DL (3.4-5.0); ALBUMIN/GLOBULIN RATIO 0.6 (1.1-1.5); ALKALINE PHOSPHATASE 87 IU/L (46-116); ANION GAP 9 (8-16); ASPARTATE AMINO TRANSFERASE 67 U/L (10-37); BILIRUBIN,TOTAL 0.6 MG/DL (0.1-1.0); BLOOD UREA NITROGEN 41 MG/DL (7-18); BUN/CREATININE RATIO 8.1 (5.4-32.0); CALCIUM 8.9 MG/DL (8.5-10.1); CHLORIDE 98 MMOL/L (99-107); CREATININE 5.09 MG/DL (0.60-1.10); GLUCOSE 124 MG/DL (70-104); MAGNESIUM 2.2 MG/DL (1.5-2.4); POTASSIUM 4.9 MMOL/L (3.5-5.1); SODIUM 135 MMOL/L (135-145); TOTAL CARBON DIOXIDE 28.2 MMOL/L (24-32); TOTAL PROTEIN 6.7 G/DL (6.4-8.2); eGFR 12 ML/MIN
[2017-12-19] MEDS: lisinopril 20mg tablet PO SCH ×2 (08:00→20:41)
[2017-12-19] MEDS ORDERED: epoetin 20,000 units/ml inj IV ONE (08:00)
[2017-12-19] MEDS ORDERED: heparin 1,000unit/ml 10ml vial 10 ML IV ONE (08:00)
[2017-12-19] MEDS: furosemide 20MG tablet PO SCH ×3 (08:00→20:38)
[2017-12-19] MEDS ORDERED: heparin 1,000 units/ml 10ml inj HE ONE ×2 (08:00)
[2017-12-19] MEDS: cloNIDine 0.1 mg tablet PO SCH ×3 (08:00→20:35)
[2017-12-19] MEDS: hydrALAZINE 25 MG tablet PO SCH ×3 (08:00→21:00)
[2017-12-19] MEDS: carVEDilol 12.5mg tablet PO SCH ×2 (08:00→20:41)
[2017-12-19] MEDS: heparin, porcine 5000 units/ml vial SQ SCH ×2 (08:00→19:09)
[2017-12-19] MEDS: minoxidil 2.5mg tablet PO SCH ×2 (08:00→20:00)
[2017-12-19] MEDS: ascorbic acid 500mg tablet PO SCH (09:42)
[2017-12-19] MEDS: aspirin 81mg tablet.DR PO SCH (09:42)
[2017-12-19 11:00] VITALS: BP 109/54
[2017-12-19 15:00] VITALS: BP 98/47
[2017-12-19 19:00] VITALS: BP 100/60
[2017-12-19] MEDS ORDERED: calcium acetate 667mg (PhosLO) capsule PO ONE (19:05)
[2017-12-19] MEDS: LORazepam 0.5 MG tablet PO PRN (20:29)
[2017-12-19] MEDS: insulin glargine (Lantus) pen - multi-dose SQ SCH (21:00)
[2017-12-19 23:00] VITALS: BP 112/64
[2017-12-20] MEDS: morphine 4 MG/ML inj SYRINge IV PRN ×9 (02:02→23:10)
[2017-12-20] MEDS: LORazepam 0.5 MG tablet PO PRN ×2 (02:11→16:38)
[2017-12-20 03:00] VITALS: BP 122/57
[2017-12-20 05:39] LABS: BASOPHILS % (AUTO) 0 % (0-1); EOSINOPHILS # (AUTO) 0.1 X10'3 (0-0.9); EOSINOPHILS % (AUTO) 1.9 % (0-6); HEMATOCRIT 32.3 % (42.0-52.0); HEMOGLOBIN 10.9 g/dl (14.0-17.9); LYMPHOCYTES # (AUTO) 1.2 X10'3 (1.1-4.8); LYMPHOCYTES % (AUTO) 19.6 % (21-51); MEAN CORPUSCULAR HEMOGLOBIN 32.7 PG (27.0-31.0); MEAN CORPUSCULAR HGB CONC 33.7 % (33.0-36.5); MEAN CORPUSCULAR VOLUME 97.1 FL (78-98); MEAN PLATELET VOLUME 8.7 FL (7.4-10.4); MONOCYTES % (AUTO) 15.7 % (2-12); NEUTROPHILS % (AUTO) 62.8 % (42-75); PLATELET COUNT 136 X10'3 (140-440); RED BLOOD COUNT 3.33 X10'6 (4.70-6.10); RED CELL DISTRIBUTION WIDTH 15.6 % (11.5-14.5); WHITE BLOOD COUNT 6.3 X10'3 (4.5-11.0)
[2017-12-20 06:00] VITALS: BP 126/53
[2017-12-20 06:00] LABS: INR 1.1 INR; PARTIAL THROMBOPLASTIN TIME 35 SECONDS (22-32); PROTHROMBIN TIME 11.3 SECONDS (9.0-12.0)
[2017-12-20 06:25] LABS: ALANINE AMINOTRANSFERASE 23 U/L (12-78); ALBUMIN 2.4 G/DL (3.4-5.0); ALBUMIN/GLOBULIN RATIO 0.5 (1.1-1.5); ALKALINE PHOSPHATASE 81 IU/L (46-116); ANION GAP 8 (8-16); ASPARTATE AMINO TRANSFERASE 70 U/L (10-37); BILIRUBIN,TOTAL 0.6 MG/DL (0.1-1.0); BLOOD UREA NITROGEN 26 MG/DL (7-18); BUN/CREATININE RATIO 6.9 (5.4-32.0); CALCIUM 8.3 MG/DL (8.5-10.1); CHLORIDE 98 MMOL/L (99-107); CREATININE 3.76 MG/DL (0.60-1.10); GLUCOSE 150 MG/DL (70-104); SODIUM 134 MMOL/L (135-145); TOTAL CARBON DIOXIDE 27.9 MMOL/L (24-32); TOTAL PROTEIN 6.8 G/DL (6.4-8.2); eGFR 17 ML/MIN
[2017-12-20 07:47] LABS: ANISOCYTOSIS 1+; PLATELET ESTIMATE DECREASED; TARGET CELLS FEW
[2017-12-20 07:48] LABS: POLYCHROMASIA 1+; SCHISTOCYTES FEW
[2017-12-20] MEDS: minoxidil 2.5mg tablet PO SCH ×2 (08:00→20:15)
[2017-12-20] MEDS: hydrALAZINE 25 MG tablet PO SCH ×3 (08:00→20:15)
[2017-12-20] MEDS: cloNIDine 0.1 mg tablet PO SCH ×3 (08:00→20:15)
[2017-12-20] MEDS: heparin, porcine 5000 units/ml vial SQ SCH ×2 (08:35→20:15)
[2017-12-20] MEDS: ascorbic acid 500mg tablet PO SCH (08:35)
[2017-12-20] MEDS: calcium acetate 667mg (PhosLO) capsule PO SCH ×3 (08:36→17:41)
[2017-12-20] MEDS: aspirin 81mg tablet.DR PO SCH (08:36)
[2017-12-20] MEDS: carVEDilol 12.5mg tablet PO SCH ×2 (08:43→20:15)
[2017-12-20] MEDS: furosemide 20MG tablet PO SCH ×3 (08:43→20:15)
[2017-12-20] MEDS: lisinopril 20mg tablet PO SCH ×2 (08:46→20:14)
[2017-12-20 13:15] VITALS: BP 155/76
[2017-12-20 15:00] VITALS: BP 148/73
[2017-12-20 18:00] VITALS: BP 160/81
[2017-12-20] MEDS: insulin glargine (Lantus) pen - multi-dose SQ SCH (21:00)
[2017-12-20 22:00] VITALS: BP 173/89
[2017-12-21] VITALS (7 sets, daily range): BP systolic 115–152; BP diastolic 56–76
[2017-12-21] MEDS: morphine 4 MG/ML inj SYRINge IV PRN ×8 (01:12→23:06)
[2017-12-21 06:19] LABS: BASOPHILS % (AUTO) 0.3 % (0-1); EOSINOPHILS # (AUTO) 0.2 X10'3 (0-0.9); EOSINOPHILS % (AUTO) 3.1 % (0-6); HEMATOCRIT 33.1 % (42.0-52.0); HEMOGLOBIN 11.3 g/dl (14.0-17.9); LYMPHOCYTES # (AUTO) 1.1 X10'3 (1.1-4.8); LYMPHOCYTES % (AUTO) 20.3 % (21-51); MEAN CORPUSCULAR HEMOGLOBIN 32.7 PG (27.0-31.0); MEAN CORPUSCULAR HGB CONC 34.1 % (33.0-36.5); MEAN PLATELET VOLUME 9.1 FL (7.4-10.4); MONOCYTES # (AUTO) 0.7 X10'3 (0-0.9); MONOCYTES % (AUTO) 12.7 % (2-12); NEUTROPHILS # (AUTO) 3.5 X10'3 (1.8-7.7); NEUTROPHILS % (AUTO) 63.6 % (42-75); PLATELET COUNT 154 X10'3 (140-440); RED BLOOD COUNT 3.44 X10'6 (4.70-6.10); WHITE BLOOD COUNT 5.4 X10'3 (4.5-11.0)
[2017-12-21 06:29] LABS: INR 1.1 INR; PROTHROMBIN TIME 11.1 SECONDS (9.0-12.0)
[2017-12-21 06:38] LABS: ALANINE AMINOTRANSFERASE 23 U/L (12-78); ALBUMIN 2.4 G/DL (3.4-5.0); ALBUMIN/GLOBULIN RATIO 0.5 (1.1-1.5); ALKALINE PHOSPHATASE 84 IU/L (46-116); ANION GAP 11 (8-16); ASPARTATE AMINO TRANSFERASE 65 U/L (10-37); BILIRUBIN,TOTAL 0.6 MG/DL (0.1-1.0); BLOOD UREA NITROGEN 38 MG/DL (7-18); BUN/CREATININE RATIO 7.8 (5.4-32.0); CALCIUM 8.9 MG/DL (8.5-10.1); CHLORIDE 96 MMOL/L (99-107); CREATININE 4.88 MG/DL (0.60-1.10); GLUCOSE 132 MG/DL (70-104); MAGNESIUM 2.1 MG/DL (1.5-2.4); POTASSIUM 4.6 MMOL/L (3.5-5.1); SODIUM 134 MMOL/L (135-145); TOTAL CARBON DIOXIDE 27.2 MMOL/L (24-32); TOTAL PROTEIN 6.8 G/DL (6.4-8.2); eGFR 12 ML/MIN
[2017-12-21] MEDS: heparin, porcine 5000 units/ml vial SQ SCH ×2 (07:59→20:00)
[2017-12-21] MEDS: aspirin 81mg tablet.DR PO SCH (07:59)
[2017-12-21] MEDS: carVEDilol 12.5mg tablet PO SCH ×2 (07:59→21:11)
[2017-12-21] MEDS: ascorbic acid 500mg tablet PO SCH (07:59)
[2017-12-21] MEDS: calcium acetate 667mg (PhosLO) capsule PO SCH ×3 (07:59→17:24)
[2017-12-21] MEDS: hydrALAZINE 25 MG tablet PO SCH ×2 (08:00→13:00)
[2017-12-21] MEDS: lisinopril 20mg tablet PO SCH ×2 (08:00→21:11)
[2017-12-21] MEDS: furosemide 20MG tablet PO SCH ×3 (08:00→21:12)
[2017-12-21] MEDS ORDERED: cloNIDine 0.1 mg tablet PO PRN (11:00)
[2017-12-21] MEDS: insulin glargine (Lantus) pen - multi-dose SQ SCH (21:00)
[2017-12-22] MEDS: hydrALAZINE 25 MG tablet PO SCH ×4 (00:03→21:21)
[2017-12-22] MEDS: LORazepam 0.5 MG tablet PO PRN ×2 (01:16→21:20)
[2017-12-22 02:00] VITALS: BP 125/60
[2017-12-22] MEDS: morphine 4 MG/ML inj SYRINge IV PRN ×5 (05:25→18:36)
[2017-12-22 06:00] VITALS: BP 151/73
[2017-12-22 06:06] LABS: BASOPHILS % (AUTO) 0.5 % (0-1); EOSINOPHILS # (AUTO) 0.2 X10'3 (0-0.9); EOSINOPHILS % (AUTO) 4.3 % (0-6); HEMATOCRIT 32.8 % (42.0-52.0); HEMOGLOBIN 11.1 g/dl (14.0-17.9); LYMPHOCYTES # (AUTO) 1.1 X10'3 (1.1-4.8); LYMPHOCYTES % (AUTO) 19.2 % (21-51); MEAN CORPUSCULAR HEMOGLOBIN 32.8 PG (27.0-31.0); MEAN CORPUSCULAR HGB CONC 33.9 % (33.0-36.5); MEAN CORPUSCULAR VOLUME 96.8 FL (78-98); MEAN PLATELET VOLUME 9.1 FL (7.4-10.4); MONOCYTES # (AUTO) 0.7 X10'3 (0-0.9); MONOCYTES % (AUTO) 11.6 % (2-12); NEUTROPHILS # (AUTO) 3.7 X10'3 (1.8-7.7); NEUTROPHILS % (AUTO) 64.4 % (42-75); PLATELET COUNT 169 X10'3 (140-440); RED BLOOD COUNT 3.38 X10'6 (4.70-6.10); RED CELL DISTRIBUTION WIDTH 14.9 % (11.5-14.5); WHITE BLOOD COUNT 5.7 X10'3 (4.5-11.0)
[2017-12-22 06:15] LABS: INR 1.1 INR; PROTHROMBIN TIME 11.2 SECONDS (9.0-12.0)
[2017-12-22 06:33] LABS: ALANINE AMINOTRANSFERASE 25 U/L (12-78); ALBUMIN 2.4 G/DL (3.4-5.0); ALBUMIN/GLOBULIN RATIO 0.5 (1.1-1.5); ALKALINE PHOSPHATASE 88 IU/L (46-116); ANION GAP 10 (8-16); ASPARTATE AMINO TRANSFERASE 64 U/L (10-37); BILIRUBIN,TOTAL 0.6 MG/DL (0.1-1.0); BLOOD UREA NITROGEN 49 MG/DL (7-18); BUN/CREATININE RATIO 7.9 (5.4-32.0); CALCIUM 9.3 MG/DL (8.5-10.1); CHLORIDE 95 MMOL/L (99-107); CREATININE 6.18 MG/DL (0.60-1.10); GLUCOSE 118 MG/DL (70-104); MAGNESIUM 2.2 MG/DL (1.5-2.4); POTASSIUM 5.1 MMOL/L (3.5-5.1); SODIUM 131 MMOL/L (135-145); TOTAL CARBON DIOXIDE 26.4 MMOL/L (24-32); eGFR 9 ML/MIN
[2017-12-22] MEDS: calcium acetate 667mg (PhosLO) capsule PO SCH ×3 (07:25→17:49)
[2017-12-22] MEDS: ascorbic acid 500mg tablet PO SCH (07:26)
[2017-12-22] MEDS: furosemide 20MG tablet PO SCH ×3 (07:26→21:24)
[2017-12-22] MEDS: lisinopril 20mg tablet PO SCH ×2 (07:26→21:25)
[2017-12-22] MEDS: carVEDilol 12.5mg tablet PO SCH ×2 (07:27→21:25)
[2017-12-22] MEDS: aspirin 81mg tablet.DR PO SCH (07:27)
[2017-12-22] MEDS: heparin, porcine 5000 units/ml vial SQ SCH ×2 (08:00→21:27)
[2017-12-22] MEDS ORDERED: albumin (human) 25% 100ml IV 100 ML IV PRN (08:00)
[2017-12-22] MEDS ORDERED: heparin 1,000unit/ml 10ml vial 10 ML IV ONE (08:00)
[2017-12-22] MEDS ORDERED: heparin 1,000 units/ml 10ml inj IV ONE (08:00)
[2017-12-22 11:00] VITALS: BP 148/78
[2017-12-22] MEDS ORDERED: heparin 1,000 units/ml 10ml inj HE ONE ×2 (13:15)
[2017-12-22 15:00] VITALS: BP 103/52
[2017-12-22 18:00] VITALS: BP 123/58
[2017-12-22] MEDS: insulin glargine (Lantus) pen - multi-dose SQ SCH (21:00)
[2017-12-23] MEDS: morphine 4 MG/ML inj SYRINge IV PRN ×4 (01:31→14:38)
[2017-12-23 02:00] VITALS: BP 126/64
[2017-12-23] MEDS: calcium acetate 667mg (PhosLO) capsule PO SCH ×2 (07:22→13:07)
[2017-12-23] MEDS: ascorbic acid 500mg tablet PO SCH (07:22)
[2017-12-23] MEDS: lisinopril 20mg tablet PO SCH (07:24)
[2017-12-23] MEDS: furosemide 20MG tablet PO SCH ×2 (07:24→13:04)
[2017-12-23] MEDS: hydrALAZINE 25 MG tablet PO SCH ×2 (07:24→13:06)
[2017-12-23] MEDS: carVEDilol 12.5mg tablet PO SCH (07:25)
[2017-12-23] MEDS: aspirin 81mg tablet.DR PO SCH (07:25)
[2017-12-23] MEDS: heparin, porcine 5000 units/ml vial SQ SCH (07:36)
[2017-12-23 08:46] VITALS: BP 134/63
[2017-12-23 11:00] VITALS: BP 113/59
[2017-12-23 15:00] VITALS: BP 149/72
== END 2017-12-23 16:35 | DRG 604 ==
LOC: ER 03:53 → ED HOLD 05:27 → PCU 3S 15:20
PROVIDERS: ADMIT Internal Medicine Critical Care Medicine; ATTEND Internal Medicine Critical Care Medicine
PROC: 5A1D70Z Performance of Urinary Filtration, Intermittent, Less than 6 Hours Per Day (ICD-10-PCS; 2017-12-17)
PROC: 5A1D70Z Performance of Urinary Filtration, Intermittent, Less than 6 Hours Per Day (ICD-10-PCS; 2017-12-19)
PROC: 5A1D70Z Performance of Urinary Filtration, Intermittent, Less than 6 Hours Per Day (ICD-10-PCS; principal; 2017-12-22)
DX: S30.1XXA Contusion of abdominal wall, initial encounter (principal); N18.6 End stage renal disease; I13.2 Hypertensive heart and chronic kidney disease with heart failure and with stage 5 chronic kidney disease, or end stage renal disease; E11.22 Type 2 diabetes mellitus with diabetic chronic kidney disease; I50.32 Chronic diastolic (congestive) heart failure; G89.29 Other chronic pain; B19.20 Unspecified viral hepatitis C without hepatic coma; E78.00 Pure hypercholesterolemia, unspecified; I25.10 Atherosclerotic heart disease of native coronary artery without angina pectoris; X58.XXXA Exposure to other specified factors, initial encounter; I25.2 Old myocardial infarction; Z99.2 Dependence on renal dialysis; Z95.1 Presence of aortocoronary bypass graft; Z79.899 Other long term (current) drug therapy; Z79.4 Long term (current) use of insulin; Z79.82 Long term (current) use of aspirin; Z83.42 Family history of familial hypercholesterolemia; Z82.49 Family history of ischemic heart disease and other diseases of the circulatory system; Z83.3 Family history of diabetes mellitus; Y93.89 Activity, other specified; Y92.89 Other specified places as the place of occurrence of the external cause; Y99.8 Other external cause status
CPT/HCPCS: 36415; 74176; 80053; 82948; 83036; 83690; 83735; 84100; 85025; 85610; 85730; 87070; 89051; 90935; 97110; 97116; 97161; 97530; 99285; A6209; A6212; A6251; A6258; A6449; A9270; G0257; J0885; J1644; J1815; J2270; J2405; J3490; J7030